=== PATIENT | female | born 1960 | race Caucasian/White ===

== ENCOUNTER 2024-04-28 13:23 | Emergency (ER) | payer MEDICARE, SELFPAY ==
[2024-04-28 13:27] VITALS: BP 152/90
--- NOTE | 2024-04-28 14:05 | ED.GENMED ---
History of Present Illness
General
Chief Complaint: Abdominal Pain
Source: patient
Time Seen by Provider: 04/28/24 13:37
Travel History
Have you had any contact with someone who has COVID-19?: No
Do you have any symptoms of coronavirus? Fever > 100 degrees, chills, cough, shortness of breath, sore throat, loss of taste or smell, muscle aches, or headache?: No
History of Present Illness
History of Present Illness:
63-year-old female with past medical history of CLL that is currently being monitored and not actively treated presenting to the emergency department for a multitude of concerns centered around GI related symptoms starting around a week and a half
ago. Patient states symptoms started as 3 days of loose stool and diarrhea, aggravated when eating, now fully resolved but patient still with intermittent lower abdominal cramping, decreased p.o. intake and generalized fatigue. Secondary concern
of right-sided lower back pain that is been ongoing for around 4 to 5 months and left-sided neck pain that will intermittently radiate down the left arm for a couple of weeks as well. Patient denies any fevers, chills, rigors, nausea or vomiting.
No known sick contacts, recent travel or recent antibiotics. Patient denies any surgical history on her abdomen. Social history was noted for cigarette use at about half pack per day.
Past History
Past History
ED Past Medical History: Cancer
ED Past Surgical History: Orthopedic
Social History
Tobacco: Smoker
Alcohol: Occasional
Drug: None
Personal: Single
Living: alone
Employment: Employed
Review of Systems
Review of Systems
All Other Systems: ROS reviewed and negative except as documented in HPI and ROS
Phy Exam
Physical Exam
Physical Exam:
GENERAL: Alert , in no apparent distress, smiling and pleasant
EYE: clear conjunctiva b/l
HEAD: NCAT
ENT: o/p clr, mmm.
CARDIAC: Regular rate and rhythm
LUNGS: Clear breath sounds bilaterally, no acute respiratory distress, no wheezes/rales/rhonchi
ABDOMEN: Soft, without focal tenderness, normoactive bowel sounds, no r/g, no cvat, negative Allen sign, no tenderness at McBurney's point
NEUROLOGICAL: Alert and oriented
SKIN: Warm and dry, skin intact.
MUSCULOSKELETAL: well perfused.
PSYCH: Normal and appropriate interaction.
Scores
Heart Failure Risk
Heart Failure Risk Score: Not Applicable
Heart Score for Chest Pain Patients
STEMI patient?: Not applicable
Withdrawal Assessment of Alcohol
Withdrawal Assessment Completed?: Not applicable
Course
Orders/Labs/Results
Orders:
Orders
04/28/24 13:29
EKG [Electrocardiogram (*1)] Urgent
Reason for Study: Abdominal Pain
04/28/24 13:30
EKG- Treatment ONCE
04/28/24 14:01
Complete Blood Count/With Diff Urgent
Comprehensive Metabolic Panel Urgent
Lipase Urgent
04/28/24 14:13
0.9% Sodium Chloride 1000 ml [Nss] 1,000 ml IV BOLUS
04/28/24 14:30
CT Abd/pelvis W Iv Cont Urgent
Comment:
Reason For Exam: generalized abd pain
Abnormal Lab Results
04/28/24
14:01
WBC 43.7 H* 10^3/uL
(4.8-10.8)
MCH 31.9 H pg
(27.0-31.0)
Abs Immat Gran (auto) 0.1 H 10^3/uL
(0-0.05)
Absolute Lymphs (auto) 35.1 H 10^3/uL
(1.2-3.4)
Absolute Eos (auto) 2.1 H 10^3/uL
(0-0.7)
Neutrophils % 12.8 L %
(42.2-75.2)
Lymphocytes % 80.3 H %
(20.5-51.1)
Monocytes % 1.5 L %
(1.7-9.3)
Creatinine 0.5 L mg/dL
(0.6-1.0)
Glucose 110 H mg/dl
(70-99)
Calcium 10.3 H mg/dl
(8.4-10.2)
04/28/24 14:01
04/28/24 14:01
Vital Signs
Initial and Last Documented VS:
Initial Vital Signs
Temp Pulse Resp BP Pulse Ox
98.3 F 90 18 152/90 98
04/28/24 13:27 04/28/24 13:27 04/28/24 13:27 04/28/24 13:27 04/28/24 13:27
Last Documented Vital Signs
Temp Pulse Resp BP Pulse Ox
98.3 F 68 16 131/77 98
04/28/24 13:27 04/28/24 18:08 04/28/24 18:08 04/28/24 18:08 04/28/24 18:08
MDM/Problems Addressed
Differential Diagnosis Includes:
Gastroenteritis, colitis, GERD/gastritis, diverticulitis, irritable bowel syndrome
MDM/Problems Addressed:
63-year-old female presenting to the emergency department for evaluation of GI related symptoms for about a week and a half. Patient is very well-appearing in no acute distress. Reassuring abdominal exam. Vital signs reassuring as well. Will
check labs and treat with a liter of fluids. Reassessment following. Deferring imaging right now as patient's abdominal exam is soft and without any focal tenderness.
*Radiology
Radiology exam reviewed: radiology read reviewed
*Pulse Oximetry
Patient hypoxic: no
*EKG
Interpreted by ED Provider?: Yes
Comparison EKG: no changes
Heart Rate: 83
Rate: normal
Rhythm: sinus
Ischemia: no ischemia
*Critical Care Note
Total Time (30-74mins, 75-104mins- exclusive of procedures): Not Applicable
Data Reviewed
Review of Other/Old Records Reveals: Labs and Records
Source: patient
Patient Management
Escalation/DeEscalation of care consider admission/obs:
CT with no acute intra-abdominal pathologies. Patient is stable for d/c home and outpatient management. Aware of return precautions to the ED
ED Attending Note
-
Portions of this chart may have been created with voice recognition software.� Occasional wrong word or��sound alike� substitutions may have occurred due to the inherent limitations of voice recognition software.
Discharge Plan
Departure
Patient Disposition: Home (Routine Discharge)
Date of Disposition: 04/28/24
Time of Disposition: 17:50
Patient with high blood pressure during this ER visit?: Yes
Discharge Problem:
Decreased appetite
Instructions: Diarrhea in teens and adults
Prescriptions:
No Action
cyanocobalamin (vitamin B-12) solution
1 dose IM QMONTH
thiamine HCl (vitamin B1)
1 tab PO DAILY
Patient Comments:
04/28/2024, pt. states that this vitamin is 'sort of like a complex' and contains other vitamins but is unsure of what they are.
Referrals:
UNKNOWN - PT DOES,NOT KNOW [Family Provider] -
Lara Brady, DO [Active] - Follow up in 1 week
Activity Restrictions/Additional Instructions:
I have given you the contact information for a local GI doctor you can follow-up with, Dr. Brady. 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 Chemistry levels are
unremarkable. The CAT scan showed no sign of inflammation, there is no sign of diverticular disease, there is no bowel obstruction, the appendix was normal. Return here if worse.
Interventions
Interventions:
*Risk Screen - Suicide Last Done: 04/28/24 13:27
*General Assessment Last Done: 04/28/24 13:46
*Neglect/Abuse Screening Last Done: 04/28/24 13:27
ED- Fall Risk Assessment Last Done: 04/28/24 18:08
*ED COVID-19 Vaccine History Last Done: 04/28/24 13:27
*Nursing Disposition Last Done: 04/28/24 18:08
JE-Tvnmib-Hiadnkrelc Assessment Last Done: 04/28/24 13:47
Discharge Date and Time
Discharge Date/Time: 04/28/24 18:08
Print Language: DIVEHI
[2024-04-28 14:18] LABS: % Basophils 0.4 % (0-2); % Eosinophils 4.7 % (0-6); % Immature Granulocytes 0.3 % (0-0.5); % Lymphocytes 80.3 % (20.5-51.1); % Monocytes 1.5 % (1.7-9.3); % Neutrophils 12.8 % (42.2-75.2); Absolute Basophils 0.2 10^3/uL (0-0.2); Absolute Eosinophils 2.1 10^3/uL (0-0.7); Absolute Immature Granulocytes 0.1 10^3/uL (0-0.05); Absolute Lymphocytes 35.1 10^3/uL (1.2-3.4); Absolute Monocytes 0.6 10^3/uL (0.1-0.6); Absolute Neutrophils 5.6 10^3/uL (1.4-6.5); Hematocrit 40.8 % (37.0-47.0); Hemoglobin 13.8 g/dL (12.0-16.0); Mean Corp Hgb Conc. 33.8 g/dL (33.0-37.0); Mean Corpuscular Hgb 31.9 pg (27.0-31.0); Mean Corpuscular Volume 94.2 fL (81.0-99.0); Mean Platelet Volume 9.7 fL (7.4-10.4); Nucleated Red Blood Cells % 0 %; Platelet Count 282 10^3/uL (130-400); Red Blood Cell Count 4.33 10^6/uL (4.20-5.40)
[2024-04-28] MEDS: NSS 1000 IV (14:19)
[2024-04-28 14:20] LABS: ALT (SGPT) 20 U/L (0-35); AST (SGOT) 26 U/L (14-36); Albumin 4.6 g/dl (3.5-5.0); Alkaline Phosphatase 93 U/L (38-126); Blood Urea Nitrogen 14 mg/dl (7-17); Calcium 10.3 mg/dl (8.4-10.2); Carbon Dioxide 27 mmol/L (22-30); Chloride 105 mmol/L (98-107); Glucose 110 mg/dl (70-99); Lipase 140 U/L (23-300); Potassium 4.5 mmol/L (3.5-5.1); Sodium 140 mmol/L (135-145); Total Bilirubin 0.5 mg/dl (0.2-1.3); Total Protein 7.2 g/dl (6.3-8.2); eGFR > 60.00
[2024-04-28 14:24] LABS: White Blood Cell Count 43.7 10^3/uL (4.8-10.8)
[2024-04-28 14:42] VITALS: BP 132/82
[2024-04-28 16:54] VITALS: BP 147/86
[2024-04-28 18:08] VITALS: BP 131/77
== END 2024-04-28 18:08 | disposition home or self-care (01) ==
LOC: EMR 13:23
PROVIDERS: Physician Assistant Medical; EMERGENCY PHYSICIAN Emergency Medicine
DX: R63.0 Anorexia (principal); F17.210 Nicotine dependence, cigarettes, uncomplicated; R03.0 Elevated blood-pressure reading, without diagnosis of hypertension
CPT/HCPCS: 99285; 96360; 74177; 80053; 83690; 85025; 93005; Q9967